=== PATIENT | male | born 1960 | race Caucasian/White ===

== ENCOUNTER 2022-12-04 08:54 | Observation (INO) ==
--- NOTE | 2022-10-24 21:54 | PAT Medication Instructions ---
Medication Instructions Date of Service October 24, 2022 Home Medications acetaminophen 500 mg tablet 1,000 mg PO Q6H PRN Pain allopurinol 300 mg tablet 300 mg PO HS ascorbic acid (vitamin C) 500 mg tablet (Vitamin C) 500 mg PO QAM cholecalciferol (vitamin D3) 50 mcg (2,000 unit) capsule (Vitamin D3) 50 mcg PO QAM diclofenac sodium 1 % topical gel 2 g topical QID PRN Pain diclofenac sodium 75 mg tablet,delayed release 75 mg PO BID losartan 50 mg tablet 50 mg PO QAM multivitamin 1 tab PO QAM terazosin 10 mg capsule 10 mg PO HS zinc 50 mg tablet 50 mg PO QAM ASK your surgeon for instructions diclofenac sodium 75 mg tablet,delayed release 75 mg PO BID diclofenac sodium 1 % topical gel 2 g topical QID PRN Pain DO NOT take the morning of surgery ascorbic acid (vitamin C) 500 mg tablet (Vitamin C) 500 mg PO QAM cholecalciferol (vitamin D3) 50 mcg (2,000 unit) capsule (Vitamin D3) 50 mcg PO QAM losartan 50 mg tablet 50 mg PO QAM multivitamin 1 tab PO QAM zinc 50 mg tablet 50 mg PO QAM Take morning of surgery With a small sip of water, OTHERWISE NOTHING TO EAT OR DRINK AFTER MIDNIGHT: acetaminophen 500 mg tablet 1,000 mg PO Q6H PRN Pain (if needed) Take evening before surgery acetaminophen 500 mg tablet 1,000 mg PO Q6H PRN Pain (if needed) allopurinol 300 mg tablet 300 mg PO HS terazosin 10 mg capsule 10 mg PO HS Other Notes If you have any questions please call us at [phone] or [phone] or [phone] or [phone]
--- NOTE | 2022-10-30 08:49 | Anesthesiology Consultation ---
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 Pt is vaccinated for Covid. Will leave to surgeon's discretion if preop Covid testing needed. Educated on importance of using Covid precautions one week prior to surgery Teaching & Discussion Pre-Anesthesia Teaching/Discussion Notes: Instructed NPO after midnight before surgery,except medications with 15 cc of water. Medication instructions provided according to the PAT guidelines. History Surgery Operation Date: 12/04/22 10:30 Proposed Procedures p Left Total Knee Arthroplasty - Alireza Abbott DO Height/Weight Height: 6 ft 1 in Weight: 122.3 kg Allergies Allergy/AdvReac Type Severity Reaction Status Date / Time Penicillins Allergy "welts Verified 10/24/22 08:58 over entire body" codeine AdvReac Intermediate Agitated Verified 10/30/22 08:55 Medications Home Medications Medication Instructions Recorded Confirmed Last Taken acetaminophen 500 mg tablet 1,000 mg PO Q6H PRN Pain 10/24/22 10/24/22 Unknown allopurinol 300 mg tablet 300 mg PO HS 10/24/22 10/24/22 Unknown ascorbic acid (vitamin C) 500 mg 500 mg PO QAM 10/24/22 10/24/22 Unknown tablet (Vitamin C) cholecalciferol (vitamin D3) 50 50 mcg PO QAM 10/24/22 10/24/22 Unknown mcg (2,000 unit) capsule (Vitamin D3) diclofenac sodium 1 % topical gel 2 g topical QID PRN Pain 10/24/22 10/24/22 Unknown diclofenac sodium 75 mg 75 mg PO BID 10/24/22 10/24/22 Unknown tablet,delayed release losartan 50 mg tablet 50 mg PO QAM 10/24/22 10/24/22 Unknown multivitamin 1 tab PO QAM 10/24/22 10/24/22 Unknown terazosin 10 mg capsule 10 mg PO HS 10/24/22 10/24/22 Unknown zinc 50 mg tablet 50 mg PO QAM 10/24/22 10/24/22 Unknown Past Medical History Medical History (Updated 10/30/22 @ 08:54 by Geri Wilburn PA-C) Gout No recent issues History of anesthesia problem Post op hypotension with hernia surgery- had to stay an extra few hours but later discharged home Hx of coronary angiogram 2001 following [place]; done in [facility] - no stents or bypass needed 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 kidney; has also had exploratory surgery to check to see if the tumors came back- no issues History of tonsillectomy and adenoidectomy Hx of colonoscopy Hx of total shoulder replacement lt. Hx of umbilical hernia repair Past Anesthesia History No Hx of Anesthesia Complications (with exception to hernia surgery (2014) - hypotension post op - did have subsequent shoulder surgery without issues ) and No Family Hx of Anesthesia Complications History of PONV No Hx of PONV and No Hx of Motion Sickness Social History Smoking Status: Former smoker tobacco type: cigarettes Do You Dip or Chew Tobacco: Yes (08/03/21-quit) Smoking End Date: 2001 Hx Alcohol Use: Yes alcohol intake frequency: holidays/special occasions only Alcohol Intake Frequency Comment: doesn't drink much when he does drink Hx Substance Use: No substance use type: does not use Review of Systems Hx of snoring - shallow breathing but no witnessed apnea- no hx of sleep study Patient denies chest pain, shortness of breath, dyspnea on exertion, reflux, cough, wheezing, palpitations. No hx of seizures, stroke. No hx of blood clots or blood transfusions Physical Exam Vital Signs VITALS BP 155/98 (did not take BP meds this morning- usually better controlled- will take BP meds when he gets home and recheck BP and call if still elevated) P 79 TEMP 98.0 SP02 95% RESP 16 Constitutional no acute distress ENMT Mouth: + small oral opening; no TMJ clicking Thyromental Distance: > or= 3.5 Finger Breadths (4.0) Mallampati Class: III Missing molars Neck neck extension not limited Respiratory normal respiratory effort; no respiratory distress Auscultation: lungs clear to auscultation bilaterally; no wheezes Cardiovascular Rate/Rhythm: regular rate and regular rhythm Heart Sounds: no murmur Vessels: no carotid bruit Musculoskeletal Spine: no pain with cervical ROM Extremities: extremities normal to inspection Psychiatric Orientation: alert Lab Results Anesthesia Preop Results Results Anesthesia Widget: 2 WBC 7.06 K/ul (4.8-10.8) 10/30/22 Hgb 13.9 g/dl (14.0-18.0) L 10/30/22 Hct 42.2 % (40.1-51.0) 10/30/22 Plt 196 K/uL (130-400) 10/30/22 Na 139 mmol/L (136-145) 10/30/22 K 4.0 mmol/L (3.5-5.1) 10/30/22 Cl 106 mmol/L (98-107) 10/30/22 CO2 26 mmol/L (21-32) 10/30/22 BUN 11 mg/dl (6-23) 10/30/22 Creat 0.79 mg/dl (0.6-1.4) 10/30/22 Glucose Level 87 mg/dl (70-99(Fasting)) 10/30/22 PT 10.3 Seconds (9.0-12.0) 10/30/22 PTT 30.1 Seconds (21.0-31.0) 10/30/22 INR 1.0 (0.9-1.1) 10/30/22 HA1c 5.7 % (4.5-5.6) H 10/30/22 Urine Color Yellow 10/30/22 Urine Appearance Clear (Clear) 10/30/22 Urine pH 6.0 (4.5-7.5) 10/30/22 Urine Specific [place] 1.019 (1.000-1.030) 10/30/22 Urine Protein Negative (Negative) 10/30/22 Urine Glucose (UA) Negative (Negative) 10/30/22 Urine Ketones Negative (Negative) 10/30/22 Urine Blood Negative (Negative) 10/30/22 Urine Nitrite Negative (Negative) 10/30/22 Urine Bilirubin Negative (Negative) 10/30/22 Urine Urobilinogen Negative (Negative) 10/30/22 Urine Leukocyte Esterase Negative (Negative) 10/30/22 Blood Type O Positive 10/30/22 Antibody Screen NEGATIVE 10/30/22 Testing Electrocardiogram Date: 10/30/22 Sinus rhythm with sinus arrhythmia with 1st degree AVB at 70bpm. Otherwise normal EKG per cardio. Chest X-Ray Date: 10/30/22 Findings: + NAD FINDINGS: PA and lateral chest radiographs are obtained. The heart is mildly enlarged. The pulmonary vasculature is noncongested. The lungs and pleural spaces are clear noting mild bibasilar atelectasis. There is no pneumothorax. The skeletal structures are osteopenic. The bony thorax appears intact. Degenerative change and mild scoliosis is noted in the spine. A left shoulder arthroplasty is in place. COVID-19 Risk Screen Screening Information COVID-19 Screen Date: 10/30/22 Exposure 21 Days Family/Household +COVID Last 21 Days: No Exposure 10 Days Any COVID Exposure Last 10 Days: No Symptoms Last 10 Days Experienced COVID Sx Last 10 Days: No + COVID 0-90 Days COVID + in Last 0-90 Days: No Risk Plan COVID Risk Plan: No Risk Identified Patient Education COVID Preop Screening Education Complete: Yes
--- NOTE | 2022-11-05 08:52 | History & Physical Report ---
Date of Service November 05, 2022 date of surgery: 12/04/22 Procedure: Left Total Knee Arthroplasty Surgeon: Alireza Abbott Assessment & Plan (1) Arthritis of knee, left: Plan: Further care discussed with patient and at this point in time has failed conservative measures and would like to proceed with a left total knee replacement. Plan on discharge will be home with home health physical therapy. DVT prophylaxiswith TEDs, SCDs and will also place on aspirin 81 mg p.o. b.i.d. for a month postop. Patient will have follow up appointment in our office two weeks post op for staple/suture removal and re-evaluation. Patient otherwise has no other questions or concerns. The risks and benefits have been discussed including, but not limited to, risk of infection, nerve injury, stiffness, loss of motion, failure to improve, etc. Reasonable outcomes and options of treatment were discussed. An explanation of appropriate alternatives to the procedure that may be advantageous were discussed and their risks and benefits, as well as the risks and benefits of not proceeding with treatment. I offered to answer any additional inquiries concerning the treatment involved. All the patient's questions were answered. The patient is agreeable, understanding of the treatment plan and alternatives, and wishes to proceed with the treatment plan. History of Present Illness Chief Complaint: left knee pain Primary Care Provider: Alireza Abbott DO Piter is a pleasant 62-year-old male who presents for preop evaluation prior to his left total knee replacement, he has been having pain in his knee for many years now which is gradually worsened and is now affecting his daily activities including walking standing going up and down stairs. He is tried and failed prior cortisone injection, viscosupplementation, extractor loader and unloader brace, Iovera treatment without any relief. he has also tried IBU and Voltaren. He rates his current pain as a 7 out of 10. At this point time is failed conservative measures and would like to proceed with a left total knee replacement. Allergies Allergy/AdvReac Type Severity Reaction Status Date / Time Penicillins Allergy "welts Verified 10/24/22 08:58 over entire body" codeine AdvReac Intermediate Agitated Verified 10/30/22 08:55 Home Medications Medication Instructions Recorded Confirmed Type acetaminophen 500 mg tablet 1,000 mg PO Q6H PRN Pain 10/24/22 10/24/22 History allopurinol 300 mg tablet 300 mg PO HS 10/24/22 10/24/22 History ascorbic acid (vitamin C) 500 mg 500 mg PO QAM 10/24/22 10/24/22 History tablet (Vitamin C) cholecalciferol (vitamin D3) 50 50 mcg PO QAM 10/24/22 10/24/22 History mcg (2,000 unit) capsule (Vitamin D3) diclofenac sodium 1 % topical gel 2 g topical QID PRN Pain 10/24/22 10/24/22 History diclofenac sodium 75 mg 75 mg PO BID 10/24/22 10/24/22 History tablet,delayed release losartan 50 mg tablet 50 mg PO QAM 10/24/22 10/24/22 History multivitamin 1 tab PO QAM 10/24/22 10/24/22 History terazosin 10 mg capsule 10 mg PO HS 10/24/22 10/24/22 History zinc 50 mg tablet 50 mg PO QAM 10/24/22 10/24/22 History Past Med/Surg History Medical History Gout No recent issues History of anesthesia problem Post op hypotension with hernia surgery- had to stay an extra few hours but later discharged home Hx of coronary angiogram 2001 following [place]; done in [facility] - no stents or bypass needed 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 kidney; has also had exploratory surgery to check to see if the tumors came back- no issues History of tonsillectomy and adenoidectomy Hx of colonoscopy Hx of total shoulder replacement lt. Hx of umbilical hernia repair Social History Smoking Status: Former smoker Second Hand Exposure: No; Hx Alcohol Use: Yes Hx Substance Use: No Preferred Language: French Communication Ability: Effective Psych Arnp Required: No Beliefs That Will Affect Care: None Current Living Situation: Spouse and Family Feels Safe at Home: Yes Assistive Devices: Glasses Review of Systems Review of Systems: All systems reviewed & are unremarkable except as noted in HPI & below Constitutional: no fever, no chills and no sweats Respiratory: no cough and no dyspnea Cardiovascular: no chest pain, no dyspnea and no orthopnea Gastrointestinal: no abdominal pain, no nausea and no vomiting Musculoskeletal: as per Subjective / HPI Physical Exam Physical Exam: HT: 6ft 1in WT: 122.3kg Constitutional: WD/WN, vitals as above no acute distress Respiratory: normal respiratory effort, lungs clear to auscultation no respiratory distress, no labored breathing and does not use accessory muscles Cardiovascular: RRR, no murmur, no edema Gastrointestinal (Abdomen): normal bowel sounds, soft, nontender, no hepatosplenomegaly Musculoskeletal: Knee: + knee abnormal to inspection (LEFT KNEE), + effusion (+1 effusion), + limited ROM of knee (ROM 0/3/110), + knee ROM with crepitation, + joint line tenderness (medial joint line) and + Lisa's sign positive; no deformity, no skin erythema, no ecchymosis, no valgus laxity, no varus laxity, anterior drawer test negative, Gail's sign negative and pivot shift test negative Results & Data Results & Data ([facility]) Diagnostic Findings Left Knee X-ray: left knee series confirm advanced degenerative changes to the left knee, greatest medial compartments and patellofemoral joint, showing joint space narrowing, osteophyte formation and subchondral sclerosis. no acute bony pathology noted.
[~2022-12-04 08:54] MED LIST: ACETAMINOPHEN 500 MG TAB PO SCH; ALLERGY Noted to ORDERED Medication SCH; BUPIVACAINE 0.25% 30 ML VIAL ONE; BUPIVACAINE 0.5 % 5 MG/1 ML PF 10ML VIAL ONE; CeleBREX 200 MG CAP PO SCH; FAMOTIDINE 20 MG TAB PO SCH; GABAPENTIN 600 MG DOSE PO SCH; LR 500ML BOLUS, THEN 15ML/HR IV SCH; METOCLOPRAMIDE HCL 10 MG TABLET PO SCH; ROPIVACAINE 0.5% HCL/PF 150 MG, BUPIVACAINE 0.75% MPF 20 ML, EPINEPHrine 30MG/30ML (OR ... INSTIL SCH; TRANEXAMIC ACID 1,000 MG **IV Intra-op IV SCH; TRANEXAMIC ACID 1,000 MG **IV Pre-op IV SCH; dexAMETHasone 4 MG TAB PO SCH
[2022-12-04] MEDS ORDERED: PROPOFOL IV EMULSION 10 MG/ML 20 ML VIAL IV ONE ×3 (10:01→12:01)
[2022-12-04] MEDS ORDERED: MIDAZOLAM HCL 1 MG/ML 2ML VIAL ONE (10:01)
[2022-12-04] MEDS ORDERED: fentaNYL citrate 100 MCG/2 ML VIAL ONE (10:01)
[2022-12-04] MEDS ORDERED: LIDOCAINE 2% MPF LOCAL 5 ML VIAL INFIL ONE (10:01)
--- NOTE | 2022-12-04 10:09 | History & Physical Bridge Note ---
Date of Service December 04, 2022 History & Physical Bridge Note I have examined the patient, reviewed the History & Physical and in the interval since the performance of the History & Physical I have noted the following changes of clinical significance: no changes noted
[2022-12-04] MEDS ORDERED: Nursing to Pharmacy Communication SCH (10:15)
[2022-12-04] MEDS ORDERED: ceFAZolin 2000MG 2,000 MG/15 ML SYR IV ONE (10:15)
[2022-12-04] MEDS ORDERED: fentaNYL citrate 100 MCG/2 ML VIAL IV PRN (10:21)
[2022-12-04] MEDS ORDERED: ATROPINE SULFATE 0.1 MG/ML 10ML SYR IV PRN (10:21)
[2022-12-04] MEDS ORDERED: ePHEDrine sulfate 50 MG/ML AMP IV PRN (10:21)
[2022-12-04] MEDS ORDERED: ONDANSETRON INJ 2 MG/ML 2 ML VIAL IV PRN ×2 (10:21→14:14)
[2022-12-04] MEDS ORDERED: ORTHO JOINT ANESTHETIC ONE (10:54)
[2022-12-04] MEDS ORDERED: KETAMINE 50 MG/5 ML SYRINGE ONE (10:59)
[2022-12-04] MEDS ORDERED: DEXAMETHASONE SOD INJ 4 MG/ML VIAL ONE ×2 (11:41)
--- NOTE | 2022-12-04 12:50 | Operative Report ---
Post Operative Report Pre & Post Diagnosis Operation Date: 12/04/22 11:40 Pre-Op Diagnosis: Left Knee Osteoarthritis Post-Op Diagnosis: Left Knee Osteoarthritis I identified the patient and participated in the time-out.: Yes Procedure Operation Date: 12/04/22 11:40 Actual Procedures p Left Total Knee Arthroplasty(Left) utilizing Tom & NephHALFPOPS journey 2 patienttotal knee arthroplasty/femur 7 tibia 6 poly 10 patella 35 wes- Alireza Abbott DO Surgeon Alireza Abbott DO [employer] Dusty POLLARD Estimated Blood Loss 5 Findings Consistent with Post-Op Diagnosis Patient presents with a 20 degree flexion contracture eburnated [id number] large osteophytes inferior and superior patellar osteophytes anterior tibial posterior tibial posterior femoral osteophytes eburnated [id number] with a moderate to large effusion subchondral cystic changes and sclerosis Specimens Bone and cartilage Drains Medium bore Hemovac Anesthesia Type MAC Spinal Regional Complications none Disposition Accompanied Patient To Recovery: No Disposition: Recovery Room Indications Patient resents for severe end-stage DJD 20 degree flexion contracture failed attempts at conservative management including physical therapy anti- inflammatories relative rest activity modification corticosteroid injection viscosupplementation above intraoperative findings were noted Description of Procedure After proper prepping and draping of the left lower extremity anterior midline incision was made over the region of the extensor extensor mechanism after meticulous hemostasis was obtained and maintained in subcutaneous tissues a medial parapatellar incision was made The patella was subluxed lateralward the medial lateral gutter were cleaned from any hypertrophic synovitis and scar tissue of the distal femoral block was placed and the distal femoral osteotomy cut was made subsequently the chamfers anterior and posterior osteotomy cuts were made utilizing the 4-in-1 block the tibia was subsequently subluxed anteriorward medial and ateral meniscal remnants were excised in their entirety remnants of the anterior and posterior cruciate ligaments were excised in their entirety excellent exposure of the proximal tibia was obtained the tibial osteotomy guide was placed on the proximal tibial osteotomy cut was made once again the knee was irrigated with copious amounts of sterile saline solution the patella was subsequently everted lateralward thickened scar tissue around the patella was removed the patella was subsequently cut utilizing a freehand technique and was drilled prepared for final preparation and placement of patella socially flexion-extension gaps were checked and the equal and symmetric trials were placed to the appropriate femoral and tibial trials with poly-spacer being placed for equal flexion and extension gaps and full range of motion including extension to 0 and flexion to 140 the trial components after having been taken to recovery range of motion was subsequently removed meticulous hemostasis was obtained and maintained subsequently a knee block injection of joint cocktail including ropivacaine 0.5% 150 mg. Bupivacaine 0.5% epinephrine 1-200,030 mL's toradol 30 mg dexamethasone 4 mg ketamine 10 mg clonidine 100 micrograms normal saline solution 30 mg was infiltrated into the soft tissues of the posterior knee medial lateral gutters and periosteal synovium special attention was paid to protect neurovascular structures at all times subsequently trial components having been removed the knee was irrigated with sterile saline solution. debris was removed the proximal tibia was subsequently prepared and was made ready for the placement of the tibial component tibial component was also cemented and tamped into position the femoral component was subsequently placed and cemented in the position the patellar component was subsequently cemented in position because hemostasis once again obtained and maintained wound having been thoroughly irrigated with debridement and debridement lavage was performed as well as a medial parapatellar incision closed with #1 Vicryl in interrupted fashion subcutaneous was closed with #2 Vicryl skin was closed with skin clips. PA-C was necessary for prepping and drapping as well as wound closure of deep fascia Sub cutaneous tissue and skin and was necessary for the case. A sterile compressive dressing was placed patient was taken to recovery in stable condition of report dictated by Scar I attest to the content of the Intraoperative Record and any orders documented therein. Any exceptions are noted below.Due to the complex nature of the procedure, the entire surgery was performed with the operational assistance of Dusty POLLARD. The programs assistant, under direct supervision, was involved in the actual performance of all aspects of the surgical procedure including hemostasis, tissue retraction and incision, instrument management, patient positioning, and wound closure. I attest to the content of the Intraoperative Record and any orders documented therein. Any exceptions are noted below.
--- NOTE | 2022-12-04 13:47 | XRay Report ---
LEFT KNEE 2 VIEWS History: Left total knee arthroplasty. Degenerative arthritis. Postop. FINDINGS: The patient is status post a left total knee arthroplasty. The hardware is intact. No fract ure or dislocation. Surgical drains are in place. IMPRESSION: Left total knee arthroplasty. No evidence for hardware complication. ACT 112: Negative or not required by law. Electronically signed by: Ash Ferro M.D. 12/04/2022 1:45 PM
[2022-12-04] MEDS ORDERED: bisacodyL 10 MG SUPP PR PRN (14:14)
[2022-12-04] MEDS ORDERED: MAGNESIUM HYDROXIDE SUSP 30 ML UDC PO PRN (14:14)
[2022-12-04] MEDS ORDERED: oxyCODONE HCL IR 5 MG TAB (IMMEDIATE RELEASE) PO PRN (14:14)
[2022-12-04] MEDS ORDERED: diphenhydrAMINE Capsule 25 MG CAP PO PRN (14:14)
[2022-12-04] MEDS ORDERED: NALOXONE HCL 0.4 MG/1 ML VIAL/CARP IV PRN (14:14)
[2022-12-04] MEDS ORDERED: HYDROmorphone INJ 1 MG/ML SYRINGE IV PRN (14:14)
[2022-12-04] MEDS ORDERED: METOCLOPRAMIDE HCL INJ 5 MG/ML 2 ML VIAL IV PRN (14:14)
[2022-12-04] MEDS: ACETAMINOPHEN 500 MG TAB PO SCH ×2 (15:11→22:00)
[2022-12-04] MEDS: KETOROLAC TROMETHAMINE 15 MG/ML VIAL IV SCH ×2 (15:11→20:02)
[2022-12-04] MEDS: SODIUM CHLORIDE 0.9% 1000ML 1,000 ML IV SCH (15:30)
--- NOTE | 2022-12-04 16:58 | Anesthesiology Progress Note ---
Date of Service December 04, 2022 Anesthesia Post Procedure Vital Signs Vital Signs: Temp Pulse Pulse Resp BP Pulse Ox O2 Del Method 12/04/22 15:45 36.7 C 103 H 16 144/93 H 95 Nasal Cannula 12/04/22 15:24 101 H 18 144/92 H 95 Room Air 12/04/22 14:45 Nasal Cannula 12/04/22 14:45 36.4 C L 92 H 18 127/86 Nasal Cannula 12/04/22 14:30 36.4 C L 92 H 18 130/92 94 Nasal Cannula 12/04/22 14:15 99 H 18 119/90 94 Nasal Cannula 12/04/22 14:00 90 18 114/80 93 Nasal Cannula 12/04/22 13:55 95 H 18 125/82 94 Nasal Cannula 12/04/22 13:45 88 16 109/72 94 Nasal Cannula 12/04/22 13:35 93 H 15 98/67 L 92 Nasal Cannula 12/04/22 13:26 36.2 C L 102 H 22 92/64 L 93 Nasal Cannula 12/04/22 09:24 36.5 C 95 H 20 140/89 96 Room Air O2 Flow Rate 12/04/22 15:45 2 12/04/22 15:24 2 12/04/22 14:45 2 12/04/22 14:45 2 12/04/22 14:30 2 12/04/22 14:15 2 12/04/22 14:00 2 12/04/22 13:55 2 12/04/22 13:45 2 12/04/22 13:35 2 12/04/22 13:26 2 12/04/22 09:24 Pain Intensity Left Knee: Pain Intensity: 4 Transfer of Care Handoff Completed per policy Notes Mental Status: alert / awake / arousable and participated in evaluation Patient Amnestic to Procedure: Yes Nausea / Vomiting: adequately controlled Pain: adequately controlled Airway Patency, RR, SpO2: stable & adequate BP & HR: stable & adequate Hydration State: stable & adequate Neuraxial Anesthesia: was administered and sensory block is resolving Anesthetic Complications: no major complications apparent and Pt Satisfied with anesthetic care
[2022-12-04] MEDS: DOCUSATE SODIUM 100 MG CAP PO SCH (20:03)
[2022-12-04] MEDS: ASPIRIN 81 MG ECTAB PO SCH (20:04)
[2022-12-04] MEDS: ceFAZolin 2000MG 2,000 MG/15 ML SYR IV SCH (20:18)
[2022-12-04] MEDS ORDERED: allopurinoL 300 MG TAB PO SCH (21:00)
[2022-12-04] MEDS ORDERED: SENNA 8.6 MG TAB PO SCH (21:00)
[2022-12-04] MEDS ORDERED: TERAZOSIN HCL 5 MG CAP PO SCH (21:00)
[2022-12-05] MEDS: ceFAZolin 2000MG 2,000 MG/15 ML SYR IV SCH (02:58)
[2022-12-05] MEDS: KETOROLAC TROMETHAMINE 15 MG/ML VIAL IV SCH ×2 (02:59→08:33)
[2022-12-05] MEDS: SODIUM CHLORIDE 0.9% 1000ML 1,000 ML IV SCH (03:01)
[2022-12-05] MEDS: ACETAMINOPHEN 500 MG TAB PO SCH (05:16)
[2022-12-05 08:02] LABS: Hematocrit (blood only) 34.9 % (42.0-52.0); Hemoglobin 11.9 g/dl (14.0-18.0); Mean Corpuscular Hemoglobin 30.7 pg (25.0-34.0); Mean Corpuscular Hgb Conc 34.1 g/dL (32.0-36.0); Mean Corpuscular Volume 90.2 fL (80.0-100.0); Mean Platelet Volume 10.8 fL (9.4-12.4); Platelet Count 191 K/uL (130-400); RDW Coefficient of Variation 14.2 % (11.5-14.5); RDW Standard Deviation 46.5 fL (36.4-46.3); Red Blood Count 3.87 M/uL (4.70-6.10); White Blood Count 18.81 K/ul (4.8-10.8)
[2022-12-05] MEDS: ASPIRIN 81 MG ECTAB PO SCH (08:30)
[2022-12-05] MEDS: DOCUSATE SODIUM 100 MG CAP PO SCH (08:30)
[2022-12-05] MEDS ORDERED: MULTIVITAMIN TAB PO SCH (09:00)
[2022-12-05] MEDS ORDERED: ASCORBIC ACID 500 MG TAB PO SCH (09:00)
[2022-12-05] MEDS ORDERED: CHOLECALCIFEROL 1,000 UNITS 25 MCG TAB PO SCH (09:00)
[2022-12-05] MEDS ORDERED: FAMOTIDINE 10 MG TABLET PO SCH (09:00)
[2022-12-05] MEDS ORDERED: LOSARTAN POTASSIUM 50 MG TAB PO SCH (09:00)
[2022-12-05] MEDS ORDERED: CeleBREX 200 MG CAP PO SCH (09:00)
--- NOTE | 2022-12-05 09:46 | Orthopedic Progress Note ---
Date of Service December 05, 2022 Assessment & Plan (1) Arthritis of knee, left: Plan: Postop day 1 status post left total knee arthroplasty PT/OT protocols. Weightbearing as tolerated. DVT prophylaxis-aspirin p.o. twice daily, ARTHUR Taylor Pain management as written. Leukocytosis-likely secondary to preoperative steroids and/or surgical stress. Patient remaining asymptomatic. DC planning-patient is planning for home health services upon discharge. Plan for discharge to home today. Admission and Anticipated Discharge Date Admission Date: December 04, 2022 Subjective Postop day 1 Patient's sitting up in bed awake and alert. No complaints this morning. Pain is controlled. He states that he was ambulating last night around the hallways. He is hoping to go home today. Physical Exam Physical Exam: Dressings are clean, dry, and intact. Calves are soft nontender. Neurovascular intact. Toes are mobile. Patient has good dorsiflexion and plantarflexion of the left foot. Results & Data ([facility]) Vital Signs (Past 12 Hours) Vital Signs Temp Pulse Resp BP Pulse Ox O2 Del Method 12/05/22 08:03 36.6 C 88 144/78 H 94 Room Air 12/05/22 07:34 37.0 C 95 H 18 151/81 H 95 Room Air 12/05/22 03:45 36.9 C 89 18 160/80 H 96 Room Air
[2022-12-05 11:38] LABS: BUN Creatinine Ratio 25.3 (10-20); Calcium 8.5 mg/dl (8.5-10.1); Creatinine Clr Calc Pharmacy 113.9 ml/min; Est GFR (African American) 104.3 ml/min
--- NOTE | 2022-12-09 10:39 | Discharge Summary ---
Date of Service December 09, 2022 Admission HPI Per Admitting Provider Piter is a pleasant 62-year-old male who presents for preop evaluation prior to his left total knee replacement, he has been having pain in his knee for many years now which is gradually worsened and is now affecting his daily activities including walking standing going up and down stairs. He is tried and failed prior cortisone injection, viscosupplementation, reservations and ticketing agent brace, Iovera treatment without any relief. he has also tried IBU and Voltaren. He rates his current pain as a 7 out of 10. At this point time is failed conservative measures and would like to proceed with a left total knee replacement. Admission Exam Per Admitting Provider Physical Exam: HT: 6ft 1in WT: 122.3kg Constitutional: WD/WN, vitals as above no acute distress Respiratory: normal respiratory effort, lungs clear to auscultation no respiratory distress, no labored breathing and does not use accessory muscles Cardiovascular: RRR, no murmur, no edema Gastrointestinal (Abdomen): normal bowel sounds, soft, nontender, no hepatosplenomegaly Musculoskeletal: Knee: + knee abnormal to inspection (LEFT KNEE), + effusion (+1 effusion), + limited ROM of knee (ROM 0/3/110), + knee ROM with crepitation, + joint line tenderness (medial joint line) and + Lisa's sign positive; no deformity, no skin erythema, no ecchymosis, no valgus laxity, no varus laxity, anterior drawer test negative, Gail's sign negative and pivot shift test negative Principal Diagnosis Left Knee Osteoarthritis Discharge Data Allergies Allergy/AdvReac Type Severity Reaction Status Date / Time Penicillins Allergy "welts Verified 12/04/22 09:25 over entire body" codeine AdvReac Intermediate Agitated Verified 12/04/22 09:25 Procedures Performed Operation Date: 12/04/22 11:40 Actual Procedures p Left Total Knee Arthroplasty(Left) - Alireza Abbott DO Ordered Studies 12/04/22 05:00 US - OR guided needle placemen Routine Hospital Course (1) Arthritis of knee, left: Patient:PITER SANCHEZ Admit Date:12/04/22 MR#:[id number] Att Phy:Alireza Abbott,D.O. Acct ID:[id number] Cecilia Phy:Alireza Antoine D.O. Date:1960 [facility] Phy: Age:62 Location:3W Sex:M Room/Bed:[facility] cc: ~ *NOTICE TO RECEIVING REPUBLICAN/AGENCY This information is strictly Confidential and protected under [place] law. [place] law prohibits you from making any further disclosure of this information unless further disclosure is expressly permitted by the written consent of the person to whom it pertains or is authorized by law. A general authorization for the release of medical or other information is not sufficient for this purpose. Hospital accepts no responsibility if the information is made available to any other person, INCLUDING THE PATIENT. Date of Service December 05, 2022 Assessment & Plan (1) Arthritis of knee, left: Plan: Postop day 1 status post left total knee arthroplasty PT/OT protocols. Weightbearing as tolerated. DVT prophylaxis-aspirin p.o. twice daily, SCDs, ARTHUR hose Pain management as written. Leukocytosis-likely secondary to preoperative steroids and/or surgical stress. Patient remaining asymptomatic. DC planning-patient is planning for home health services upon discharge. Plan for discharge to home today. Admission and Anticipated Discharge Date Admission Date: December 04, 2022 Subjective Postop day 1 Patient's sitting up in bed awake and alert. No complaints this morning. Pain is controlled. He states that he was ambulating last night around the hallways. He is hoping to go home today. Physical Exam Physical Exam: Dressings are clean, dry, and intact. Calves are soft no ntender. Neurovascular intact. Toes are mobile. Patient has good dorsiflexion and plantarflexion of the left foot. Results & Data ([facility]) Vital Signs (Past 12 Hours) Vital Signs Temp Pulse Resp BP Pulse Ox O2 Del Method 12/05/22 08:03 36.6 C 88 144/78 H 94 Room Air 12/05/22 07:34 37.0 C 95 H 18 151/81 H 95 Room Air 12/05/22 03:45 36.9 C 89 18 160/80 H 96 Room Air Signed By: <Electronically signed by Dusty Claudio PA-C> 12/05/22 0950 <Electronically signed by Ramon Chino M.D.> 12/05/22 1704 Created:12/05/22 0945 The status of this report isSigned. Total Time Total Time Spent Total Time Spent (In Minutes): 5 Discharge Plan Discharge Items Patient Disposition: Home - Home Health Services Reason For Visit: POST OP TKA Discharge Diagnosis: Left knee osteoarthritis Activity: Per Instructions section Weightbearing: Left weightbearing Weightbearing Comment: As tolerated with walker Non-emergency contact: Surgeon Call non-emergency contact if: you have any medication questions, your pain is not controlled, your temperature is above 101.5, your wound has increased redness and your wound has increased drainage Follow-up/Referrals: Alireza Abbott DO [Surgeon] - (Follow-up with Dr. Abbott or his PA in 2 weeks from the day of your surgery for your first postoperative visit.) Alireza Antoine, D.OChun [Primary Care Provider] - Diet: Regular Addtl Attending Provider Instructions: ACTIVITY RECOMMENDATIONS: SELF CARE INSTRUCTIONS AFTER TOTAL KNEE REPLACEMENT A. You may need to continue a physical therapy program after discharge from the hospital. There are several options available to you. Your doctor will assist you in selecting the best one for you. 1. An out-patient facility 2 to 3 times a week for therapy or home therapy. 2. Continue working on all exercises taught to you in the hospital. Your goals should be to increase bending of your knee to 90 degrees and beyond and to fully straighten your knee. B. You may progress at your own pace from walking with a walker or crutches to a cane; then to no assistive devices. C. Make walking a part of your daily routine. Be up as much as comfortable with rest periods throughout the day. Rest with leg elevation is very important. Use the ice wrap frequently for the first 3-4 weeks. D. There are no restrictions on activities. You may ride in a car, shop, participate in electronic systems technician and all social activities. E. Wear the long elastic stockings (ARTHUR hose) 20 hours a day for 2 weeks after surgery. They can be removed several times a day for laundering and for a bath. F. You may shower, no tub baths until cleared by your doctor. SPECIAL CARE INSTRUCTIONS: VERY IMPORTANT TO READ AND REVIEW A. There are a few signs you need to watch for after you are home. Call [facility] if you notice any of the followin. Increased severe knee pain. Some pain is expected especially when you exercise. 2. Increased swelling in your leg or knee; pain or swelling of the calf muscle in either lower leg. 3. Any fluid drainage from the incision. 4. Shortness of breath or chest pain. B. Please call [facility] at if you have any concerns or questions about your operation or recovery. The doctor or his nurse will return your call promptly. C. You must take antibiotics before dental work, bladder, bowel or other surgery. Your doctor will provide you with a permanent care to carry describing this precaution. IMPORTANT: * REMEMBER TO TAKE ASPIRIN, 81 MG, TWICE DAILY FOR 4 WEEKS UNLESS OTHERWISE DIRECTED. THIS IS YOUR BLOOD THINNER. * HIGH RISK PATIENTS MAY BE PRESCRIBED A STRONGER BLOOD THINNER. THIS WILL BE PROVIDED AT DISCHARGE. * CALL IF INCREASED PAIN, REDNESS, DRAINAGE OR FEVER GREATER THAT 101. * WEAR ARTHUR HOSE 20 HOURS PER DAY FOR 2 WEEKS. * Prevena- This is a large suction dressing covering your incision. This will help pull any excess drainage from the wound and allow your incision to heal properly. You may shower with this if you can keep the unit outside of the shower. If any bleeding or leakage is noted please call your doctor's office. This will remain on your incision for 7 days and then should be removed. This can be done yourself or by the home nursing staff if applicable. The entire unit is disposable once removed. Once removed, keep incision clean and dry. If redness or drainage is noted, please call your surgeon. . *Once your ken dressing has been removed ---> DERMABOND Prineo- This is a mesh tape dressing that is covered with glue. It should remain in place until the incision is properly healed, usually 10-14 days. This dressing is designed to naturally slough off. You may trim the excess mesh tape as it peels off. Incision may be briefly wet in a shower. Dry immediately by blotting with a clean, dry towel. Do not bath or swim until instructed by your doctor. Do not scratch, rub, or pick at the dressing. Do not apply any topical ointments or lotions until dressing is completely removed and/or instructed by your doctor. There may be a small piece of suture material at one end of your incision. Do not pull or trim this. If it is bothersome or catching on clothing, you may c over it with a band-aid. FOLLOW UP VISIT: If appointment is not already scheduled: Please call [facility] to make a follow-up appointment for 2 weeks after your surgery at . Stand-Alone Forms: My [facility], Smoking Cessation Medications and DC Order Prescriptions: New celecoxib [Celebrex] 200 mg Capsule 200 mg PO BID 14 Days Qty: 28 0RF aspirin 81 mg Tablet,Delayed Release (Dr/Ec) 81 mg PO BID 30 Days Qty: 60 0RF acetaminophen [Tylenol Extra Strength] 500 mg Tablet 1,000 mg PO Q8 14 Days Qty: 84 0RF polyethylene glycol 3350 [Miralax] 17 gram powder in packet 17 g PO DAILY PRN (Reason: constipation) Qty: 5 0RF oxycodone 5 mg tablet 5 mg PO Q4H MDD 6 PRN (Reason: pain) Qty: 30 0RF Continued multivitamin Tablet 1 tab PO QAM losartan 50 mg Tablet 50 mg PO QAM ascorbic acid (vitamin C) [Vitamin C] 500 mg Tablet 500 mg PO QAM allopurinol 300 mg Tablet 300 mg PO HS zinc 50 mg Tablet 50 mg PO QAM terazosin 10 mg Capsule 10 mg PO HS diclofenac sodium 1 % Gel 2 g TOPICAL QID PRN (Reason: Pain) Rx Instructions: apply to single elbow, wrist or hand; for hand includes palm/fingers/back of hand cholecalciferol (vitamin D3) [Vitamin D3] 50 mcg (2,000 unit) Capsule 50 mcg PO QAM famotidine 10 mg Tablet 10 mg PO DAILY Discontinued acetaminophen 500 mg Tablet 1,000 mg PO Q6H PRN (Reason: Pain) Label Comments: every once in awhile. diclofenac sodium 75 mg Tablet,Delayed Release (Dr/Ec) 75 mg PO BID Admission Data Admit Date/Time: 12/04/22 12:49 Attending Provider: Alireza Abbott Admit Provider: Alireza Abbott Primary Care Provider: Alireza Antoine Other Interventions: Discharge Summary Assessment (RN) Last Done: 12/05/22 11:18
== END 2022-12-05 12:46 | disposition home health service (06) ==
LOC: ASU 08:54 → 3W 08:54
DX: Z88.0 Allergy status to penicillin; M17.12 Unilateral primary osteoarthritis, left knee; Z88.5 Allergy status to narcotic agent; M65.9 Synovitis and tenosynovitis, unspecified; Z87.891 Personal history of nicotine dependence; Z79.899 Other long term (current) drug therapy

== ENCOUNTER 2023-01-21 06:47 | Observation (INO) ==
--- NOTE | 2023-01-01 12:04 | History & Physical Report ---
Date of Service January 01, 2023 date of surgery: 01/21/23 Procedure: Right Total Knee Arthroplasty Surgeon: Alireza Abbott Assessment & Plan (1) Arthritis of right knee: Plan: Further care discussed with patient and at this point in time has failed conservative measures and would like to proceed with a right total knee replacement. Plan on discharge will be home with home health physical therapy. DVT prophylaxiswith TEDs, SCDs and will also place on aspirin 81 mg p.o. b.i.d. for a month postop. Patient will have follow up appointment in our office two weeks post op for staple/suture removal and re-evaluation. Patient otherwise has no other questions or concerns. The risks and benefits have been discussed including, but not limited to, risk of infection, nerve injury, stiffness, loss of motion, failure to improve, etc. Reasonable outcomes and options of treatment were discussed. An explanation of appropriate alternatives to the procedure that may be advantageous were discussed and their risks and benefits, as well as the risks and benefits of not proceeding with treatment. I offered to answer any additional inquiries concerning the treatment involved. All the patient's questions were answered. The patient is agreeable, understanding of the treatment plan and alternatives, and wishes to proceed with the treatment plan. History of Present Illness Chief Complaint: Right knee pain Primary Care Provider: Alireza Abbott DO Piter is a pleasant 62-year-old male who presents for preop evaluation prior to his right total knee replacement, he has been having pain in his knee for many years now which is gradually worsened and is now affecting his daily activities including walking standing going up and down stairs. he has recently undergone left TKA and is doing quite well. He has tried prior cortisone injection, viscosupplementation, folder and notcher brace, Iovera treatment without any significant improvement. he has also tried IBU and Voltaren. He rates his current pain as a 7 out of 10. At this point time is failed conservative measures and would like to proceed with a right total knee replacement. Allergies Allergy/AdvReac Type Severity Reaction Status Date / Time Penicillins Allergy "welts Verified 12/04/22 09:25 over entire body" codeine AdvReac Intermediate Agitated Verified 12/04/22 09:25 Home Medications Medication Instructions Recorded Confirmed Type allopurinol 300 mg tablet 300 mg PO HS 10/24/22 12/04/22 History ascorbic acid (vitamin C) 500 mg 500 mg PO QAM 10/24/22 12/04/22 History tablet (Vitamin C) cholecalciferol (vitamin D3) 50 50 mcg PO QAM 10/24/22 12/04/22 History mcg (2,000 unit) capsule (Vitamin D3) diclofenac sodium 1 % topical gel 2 g topical QID PRN Pain 10/24/22 12/04/22 History losartan 50 mg tablet 50 mg PO QAM 10/24/22 12/04/22 History multivitamin 1 tab PO QAM 10/24/22 12/04/22 History terazosin 10 mg capsule 10 mg PO HS 10/24/22 12/04/22 History zinc 50 mg tablet 50 mg PO QAM 10/24/22 12/04/22 History aspirin 81 mg tablet,delayed 81 mg PO BID 30 days #60 tabs 12/04/22 Rx release famotidine 10 mg tablet 10 mg PO DAILY 12/04/22 12/04/22 History polyethylene glycol 3350 17 gram 17 g PO DAILY PRN constipation #5 12/04/22 Rx oral powder packet (Miralax) ea oxycodone 5 mg tablet 5 mg PO Q4H PRN pain #30 tabs 12/05/22 Rx Past Med/Surg History Medical History Gout No recent issues History of anesthesia problem Post op hypotension with hernia surgery- had to stay an extra few hours but later discharged home Hx of coronary angiogram 2001 following [place]; done in [facility] - no stents or bypass needed Hx of malignant neoplasm of kidney 2011- 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 kidney; has also had exploratory surgery to check to see if the tumors came back- no issues History of tonsillectomy and adenoidectomy Hx of colonoscopy Hx of total shoulder replacement lt. Hx of umbilical hernia repair Social History Smoking Status: Former smoker Smoking End Date: 2001; Second Hand Exposure: No; Do You Dip or Chew Tobacco: Yes (08/03/21-quit); Tobacco Cessation Education Requested by Patient: No Hx Alcohol Use: Yes Hx Substance Use: No Preferred Language: Swedish Communication Ability: Effective Chemical Process Analyst Required: No Beliefs That Will Affect Care: None Current Living Situation: Spouse and Family Other Information That Helps Us Care for You: No Feels Safe at Home: Yes Safety Concerns: Feels Safe At This Time Assistive Devices: Cane, Contacts, Raised Toilet Seat and Walker Review of Systems Review of Systems: All systems reviewed & are unremarkable except as noted in HPI & below Constitutional: no fever, no chills and no sweats Respiratory: no cough and no dyspnea Cardiovascular: no chest pain, no dyspnea and no orthopnea Gastrointestinal: no abdominal pain, no nausea and no vomiting Musculoskeletal: as per Subjective / HPI Physical Exam Physical Exam: HT: 6ft 1in WT: 122.3kg Constitutional: WD/WN, vitals as above no acute distress Respiratory: normal respiratory effort, lungs clear to auscultation no respiratory distress, no labored breathing and does not use accessory muscles Cardiovascular: RRR, no murmur, no edema Gastrointestinal (Abdomen): normal bowel sounds, soft, nontender, no hepatosp lenomegaly Musculoskeletal: Knee: + knee abnormal to inspection (RIGHT KNEE: ), + effusion (+1 effusion), + limited ROM of knee (ROM 0/3/110), + knee ROM with crepitation, + joint line tenderness (medial joint line) and + Lisa's sign positive; no deformity, no skin erythema, no ecchymosis, no valgus laxity, no varus laxity, anterior drawer test negative, Gail's sign negative and pivot shift test negative Results & Data Results & Data ([facility]) Diagnostic Findings Right Knee X-ray: Right knee series showing advanced degenerative changes to the right knee, narrowing of the medial compartment and patello-femoral joint with patellar spurring noted, findings showing joint space narrowing of the medial compartment and patello-femoral joint, osteophyte formation and subchondral sclerosis noted. overall varus alignment. no acute bony pathology noted.
--- NOTE | 2023-01-15 11:50 | Anesthesiology Consultation ---
Date of Service January 15, 2023 Assessment & Plan (1) Encounter for pre-operative examination: Chart Review Chart Review: Acceptable Risk for Surgery (pending DOS labs) and Patient NOT seen in Pre Admission Testing - Recheck CBC with diff and coags stat DOS - Due to PMH- would not recommend Outpatient Joint for patient -COVID screening: Per PAT nursing assessment on 01/15/23. No known COVID-19 positive contacts or current COVID-19 related symptoms. Travel screen negative. Patient vaccinated for Covid. At surgeon discretion if preop Covid testing being done. Left TKA 12/04/22= Done under SAB at L3-4 with two attempts. Patient seen by PCP 11/14/2022 (prior to 12/04/22 left TKA)= seen for preoperative visit. Scheduled for left total knee replacement and then later for right total knee replacement. No concerns during exam today. PE within normal limits. Patient is stable for surgery at this time with minimal risks. Labs, CXR and EKG were all reviewed. Hypertensionstable. Hyperlipidemiastable. Testicular hypofunction/goutstable. History Surgery Operation Date: 01/21/23 08:25 Proposed Procedures p Right Total Knee Arthroplasty - Alireza Abbott DO Operation Date: 01/21/23 09:35 Proposed Procedures p Right Total Knee Arthroplasty - Alireza Abbott DO Height/Weight Height: 6 ft 1 in Weight: 115.666 kg Allergies Allergy/AdvReac Type Severity Reaction Status Date / Time Penicillins Allergy "welts Verified 12/04/22 09:25 over entire body" codeine AdvReac Intermediate Agitated Verified 12/04/22 09:25 Medications Home Medications Medication Instructions Recorded Confirmed Last Taken allopurinol 300 mg tablet 300 mg PO HS 10/24/22 01/15/23 12/03/22 19:00 ascorbic acid (vitamin C) 500 mg 500 mg PO QAM 10/24/22 01/15/23 12/03/22 07:00 tablet (Vitamin C) cholecalciferol (vitamin D3) 50 50 mcg PO QAM 10/24/22 01/15/23 12/03/22 07:00 mcg (2,000 unit) capsule (Vitamin D3) diclofenac sodium 1 % topical gel 2 g topical QID PRN Pain 10/24/22 01/15/23 Unknown losartan 50 mg tablet 50 mg PO QAM 10/24/22 01/15/23 12/04/22 06:00 multivitamin 1 tab PO QAM 10/24/22 01/15/23 12/03/22 07:00 terazosin 10 mg capsule 10 mg PO HS 10/24/22 01/15/23 12/03/22 19:00 zinc 50 mg tablet 50 mg PO QAM 10/24/22 01/15/23 12/03/22 07:00 famotidine 10 mg tablet 10 mg PO QAM PRN Indigestion 12/04/22 01/15/23 12/03/22 07:00 polyethylene glycol 3350 17 gram 17 g PO DAILY PRN constipation #5 12/04/22 01/15/23 Unknown oral powder packet (Miralax) ea oxycodone 5 mg tablet 5 mg PO Q4H PRN pain #30 tabs 12/05/22 01/15/23 Unknown albuterol sulfate 90 mcg/actuation 2 puff inhalation QID PRN 01/15/23 01/15/23 Unknown aerosol inhaler Shortness Of Breath diclofenac sodium 75 mg 75 mg PO BID 01/15/23 01/15/23 Unknown tablet,delayed release Past Medical History Medical History Gout No recent issues History of anesthesia problem Post op hypotension with hernia surgery- had to stay an extra few hours but later discharged home Hx of coronary angiogram 2001 following [place]; done in [facility] - no stents or bypass needed Hx of malignant neoplasm of kidney 2011- S/p tumor removal from left kidney Hypertension Myocardial Infarction 2001, had an angiogram [facility], no stents; no longer follows with cardiology Past Surgical History Surgical History (Updated 01/15/23 @ 12:00 by Geri Wilburn PA-C) History of kidney surgery 2011, tumors removed from lt. kidney; has also had exploratory surgery to check to see if the tumors came back- no issues History of tonsillectomy and adenoidectomy History of total left knee replacement (TKR) 12/04/22= Done under SAB at L3-4 with two attempts. Hx of colonoscopy Hx of total shoulder replacement lt. Hx of umbilical hernia repair Social History Smoking Status: Former smoker tobacco type: cigarettes Do You Dip or Chew Tobacco: Yes (quit 08/03/21; advised) Smoking End Date: 2001 Hx Alcohol Use: Yes alcohol intake frequency: other Alcohol Intake Frequency Comment: "doesn't drink very much when he does have a drink" Hx Substance Use: No substance use type: does not use Lab Results Anesthesia Preop Results Results Anesthesia Widget: WBC 18.81 K/ul (4.8-10.8) H 12/05/22 Hgb 11.9 g/dl (14.0-18.0) L 12/05/22 Hct 34.9 % (42.0-52.0) L 12/05/22 Plt 191 K/uL (130-400) 12/05/22 Na 139 mmol/L (136-145) 12/05/22 K 4.0 mmol/L (3.5-5.1) 12/05/22 Cl 110 mmol/L (98-107) H 12/05/22 CO2 20 mmol/L (21-32) L 12/05/22 BUN 23 mg/dl (6-23) 12/05/22 Creat 0.91 mg/dl (0.6-1.4) 12/05/22 Glucose Level 150 mg/dl (70-99(Fasting)) H 12/05/22 Testing Laboratory Results Leukocytosis - labs done while pt admitted and post op day #1 from TKA; per records "Leukocytosis-likely secondary to preoperative steroids and/or surgical stress. Patient remaining asymptomatic."; will recheck CBC DOS Mild anemia- labs done when patient was post op day #1 from TKA Electrocardiogram Date: 10/30/22 Sinus rhythm with sinus arrhythmia with 1st degree AVB at 70bpm. Otherwise normal EKG per cardio. Chest X-Ray Date: 10/30/22 Findings: + NAD FINDINGS: PA and lateral chest radiographs are obtained. The heart is mildly enlarged. The pulmonary vasculature is noncongested. The lungs and pleural spaces are clear noting mild bibasilar atelectasis. There is no pneumothorax. The skeletal structures are osteopenic. The bony thorax appears intact. Degenerative change and mild scoliosis is noted in the spine. A left shoulder arthroplasty is in place.
[~2023-01-21 06:47] MED LIST changes: -ALLERGY Noted to ORDERED Medication SCH; +ALLERGY Noted to ORDERED Medication: Cefazolin SCH; -BUPIVACAINE 0.25% 30 ML VIAL ONE; +BUPIVACAINE 0.25% PF 30 ML VIAL ONE; +DEXAMETHASONE SOD INJ 4 MG/ML VIAL ONE; +EPINEPHrine INJ 1 MG/ML AMP ONE; +ceFAZolin 2000MG 2,000 MG/15 ML SYR IV SCH
[2023-01-21] MEDS ORDERED: Nursing to Pharmacy Communication SCH (07:30)
[2023-01-21 07:38] LABS: Appearance Urine Clear (Clear); Bilirubin Urine Negative (Negative); Blood Urine Negative (Negative); Color Urine Yellow; Glucose Urine UA Negative (Negative); Ketones Urine Negative (Negative); Leukocyte Esterase Urine Negative (Negative); Nitrite Urine Negative (Negative); Protein Urine Negative (Negative); Specific Gravity Urine 1.015 (1.000-1.030); Urobilinogen Urine Negative (Negative)
[2023-01-21 07:39] LABS: Basophils # (auto) 0.04 K/uL (0-0.2); Basophils % (auto) 0.5 %; Eosinophils # (auto) 0.26 K/uL (0-0.50); Eosinophils % (auto) 2.9 %; Hematocrit (blood only) 42.5 % (42.0-52.0); Hemoglobin 13.9 g/dl (14.0-18.0); Immature Granulocytes # (auto) 0.05 K/uL (0.01-0.20); Immature Granulocytes % (auto) 0.6 %; Lymphocytes # (auto) 2.09 K/uL (1.2-3.4); Lymphocytes % (auto) 23.7 %; Mean Corpuscular Hemoglobin 29.5 pg (25.0-34.0); Mean Corpuscular Hgb Conc 32.7 g/dL (32.0-36.0); Mean Corpuscular Volume 90.2 fL (80.0-100.0); Monocytes # (auto) 0.57 K/uL (0.11-0.59); Monocytes % (auto) 6.5 %; Neutrophils # (auto) 5.82 K/uL (1.40-6.50); Neutrophils % (auto) 65.8 %; Platelet Count 227 K/uL (130-400); RDW Coefficient of Variation 14.3 % (11.5-14.5); RDW Standard Deviation 47.3 fL (36.4-46.3); Red Blood Count 4.71 M/uL (4.70-6.10); White Blood Count 8.83 K/ul (4.8-10.8)
[2023-01-21 08:09] LABS: Partial Thromboplastin Ratio 1.1; Prothrombin Time 10.3 Seconds (9.0-12.0)
--- NOTE | 2023-01-21 08:56 | History & Physical Bridge Note ---
Date of Service January 21, 2023 History & Physical Bridge Note I have examined the patient, reviewed the History & Physical and in the interval since the performance of the History & Physical I have noted the following changes of clinical significance: no changes noted
[2023-01-21] MEDS ORDERED: fentaNYL citrate PF 100 MCG/2 ML VIAL ONE (09:17)
[2023-01-21] MEDS ORDERED: MIDAZOLAM HCL 1 MG/ML 2ML VIAL ONE ×2 (09:17)
[2023-01-21] MEDS ORDERED: fentaNYL citrate PF 100 MCG/2 ML VIAL IV PRN (09:29)
[2023-01-21] MEDS ORDERED: ATROPINE SULFATE 0.1 MG/ML 10ML SYR IV PRN (09:29)
[2023-01-21] MEDS ORDERED: ePHEDrine sulfate 50 MG/ML AMP IV PRN (09:29)
[2023-01-21] MEDS ORDERED: ONDANSETRON INJ 2 MG/ML 2 ML VIAL IV PRN ×2 (09:29→13:28)
[2023-01-21] MEDS ORDERED: ORTHO JOINT ANESTHETIC ONE (09:38)
[2023-01-21] MEDS ORDERED: PROPOFOL IV EMULSION 10 MG/ML 20 ML VIAL IV ONE ×2 (10:41→11:39)
[2023-01-21] MEDS ORDERED: KETAMINE 50 MG/5 ML SYRINGE ONE (10:41)
[2023-01-21] MEDS ORDERED: LIDOCAINE 2% MPF LOCAL 5 ML VIAL INFIL ONE (11:25)
--- NOTE | 2023-01-21 11:30 | Operative Report ---
Post Operative Report Pre & Post Diagnosis Operation Date: 01/21/23 09:35 Pre-Op Diagnosis: Degenerative Joint Disease Knee Right Post-Op Diagnosis: Degenerative Joint Disease Knee Right I identified the patient and participated in the time-out.: Yes Procedure Operation Date: 01/21/23 09:35 Actual Procedures p Right Total Knee Arthroplasty(Right) utilizing [employer] 2 patient matched total knee arthroplasty size femur right 7/tibia 7 right size polyethylene Insert size patella 35 oval- Alireza Abbott DO Surgeon Alireza Abbott DO Source Inspector ATUL Epps Estimated Blood Loss 5 Findings Consistent with Post-Op Diagnosis Patient presents with an 8 degree flexion contracture varus alignment subchondral sclerosis marginal osteophytes [id number] eburnated [id number] with varus alignment and a moderate to large effusion Specimens Bone and cartilage Drains Medium bore Hemovac Anesthesia Type MAC Spinal Regional Complications none Disposition Accompanied Patient To Recovery: No Disposition: Recovery Room Indications Patient presents with severe end-stage DJD right knee no response to conservative management clinic physical therapy anti-inflammatories relative rest activity modification corticosteroid injection viscosupplementation Description of Procedure After proper prepping and draping of the Right lower extremity anterior midline incision was made over the region of the extensor extensor mechanism after meticulous hemostasis was obtained and maintained in subcutaneous tissues a medial parapatellar incision was made The patella was subluxed lateralward the medial lateral gutter were cleaned from any hypertrophic synovitis and scar tissue of the distal femoral block was placed and the distal femoral osteotomy cut was made subsequently the chamfers anterior and posterior osteotomy cuts were made utilizing the 4-in-1 block the tibia was subsequently subluxed anteriorward medial and ateral meniscal remnants were excised in their entirety remnants of the anterior and posterior cruciate ligaments were excised in their entirety excellent exposure of the proximal tibia was obtained the tibial osteotomy guide was placed on the proximal tibial osteotomy cut was made once again the knee was irrigated with copious amounts of sterile saline solution the patella was subsequently everted lateralward thickened scar tissue around the patella was removed the patella was subsequently cut utilizing a freehand technique and was drilled prepared for final preparation and placement of patella socially flexion-extension gaps were checked and the equal and symmetric trials were placed to the appropriate femoral and tibial trials with poly-spacer being placed for equal flexion and extension gaps and full range of motion including extension to 0 and flexion to 140 the trial components after having been taken to recovery range of motion was subsequently removed meticulous hemostasis was obtained and maintained subsequently a knee block injection of joint cocktail including ropivacaine 0.5% 150 mg. Bupivacaine 0.5% epinephrine 1-200,030 mL's toradol 30 mg dexamethasone 4 mg ketamine 10 mg clonidine 100 micrograms normal saline solution 30 mg was infiltrated into the soft tissues of the posterior knee medial lateral gutters and periosteal synovium special attention was paid to protect neurovascular structures at all times subsequently trial components having been removed the knee was irrigated with sterile saline solution. debris was removed the proximal tibia was subsequently prepared and was made ready for the placement of the tibial component tibial component was also cemented and tamped into position the femoral component was subsequently placed and cemented in the position the patellar component was subsequently cemented in position because hemostasis once again obtained and maintained wound having been thoroughly irrigated with debridement and debridement lavage was performed as well as a medial parapatellar incision closed with #1 Vicryl in interrupted fashion subcutaneous was closed with #2 Vicryl skin was closed with skin clips. PA-C was necessary for prepping and drapping as well as wound closure of deep fascia Sub cutaneous tissue and skin and was necessary for the case. A sterile compressive dressing was placed patient was taken to recovery in stable condition of report dictated by Scar I attest to the content of the Intraoperative Record and any orders documented therein. Any exceptions are noted below.Due to the complex nature of the procedure, the entire surgery was performed with the operational assistance of ATUL Epps. The physician assistant primary care, under direct supervision, was involved in the actual performance of all aspects of the surgical procedure including hemostasis, tissue retraction and incision, instrument management, patient positioning, and wound closure. I attest to the content of the Intraoperative Record and any orders documented therein. Any exceptions are noted below.
--- NOTE | 2023-01-21 12:50 | XRay Report ---
XR knee RT 1 or 2V routine HISTORY: 62 years-old Male Surgical Post Op right knee total joint arthroplasty COMPARISON: None TECHNIQUE: 2 views of the right knee FINDINGS: Total joint arthroplasty with patellar resurfacing. A surgical drainage catheter is in place. Expecte d postoperative soft tissue swelling with deep tissue air. No acute fracture, dislocation or unexpect ed opaque foreign body. A metallic zipper projects over the posterior soft tissues of the lateral vie w, likely external to the patient. IMPRESSION: Total joint arthroplasty with expected postoperative changes. ACT 112: Negative or not required by law. The above report was generated using voice recognition software. It may contain grammatical, syntax o r spelling errors. Electronically signed by: Trace Sebastian M.D. 01/21/2023 12:49 PM
[2023-01-21] MEDS ORDERED: SODIUM CHLORIDE 0.9% 1000ML 1,000 ML IV SCH (13:28)
[2023-01-21] MEDS ORDERED: MAGNESIUM HYDROXIDE SUSP 30 ML UDC PO PRN (13:28)
[2023-01-21] MEDS ORDERED: METOCLOPRAMIDE HCL INJ 5 MG/ML 2 ML VIAL IV PRN (13:28)
[2023-01-21] MEDS ORDERED: bisacodyL 10 MG SUPP PR PRN (13:28)
[2023-01-21] MEDS ORDERED: FAMOTIDINE 10 MG TABLET PO PRN (13:28)
[2023-01-21] MEDS ORDERED: NALOXONE HCL 0.4 MG/1 ML VIAL/CARP IV PRN (13:28)
[2023-01-21] MEDS ORDERED: ALBUTEROL HFA 8 GM INHALER INH PRN (13:28)
[2023-01-21] MEDS ORDERED: HYDROmorphone INJ 0.5 MG/0.5 ML SYR IV PRN (13:28)
[2023-01-21] MEDS ORDERED: POLYETHYLENE (MIRALAX) 17 GM PACK PO PRN (13:28)
[2023-01-21] MEDS ORDERED: diphenhydrAMINE Capsule 25 MG CAP PO PRN (13:28)
[2023-01-21] MEDS: ACETAMINOPHEN 500 MG TAB PO SCH ×2 (14:26→22:31)
[2023-01-21] MEDS: oxyCODONE HCL IR 5 MG TAB (IMMEDIATE RELEASE) PO PRN ×3 (15:13→23:34)
--- NOTE | 2023-01-21 16:34 | Anesthesiology Progress Note ---
Date of Service January 21, 2023 Anesthesia Post Procedure Vital Signs Vital Signs: Temp Pulse Pulse Resp BP Pulse Ox O2 Del Method 01/21/23 16:25 Room Air 01/21/23 16:16 36.8 C 102 H 18 168/95 H 95 Room Air 01/21/23 15:15 36.6 C 97 H 18 159/93 H 95 Room Air 01/21/23 13:47 36.7 C 81 18 150/93 H 95 Room Air 01/21/23 14:16 36.6 C 90 18 151/94 H 95 Room Air 01/21/23 13:05 79 20 125/79 96 Room Air 01/21/23 12:55 36.6 C 88 18 120/79 94 Room Air 01/21/23 12:45 74 19 120/77 95 Nasal Cannula 01/21/23 12:35 80 17 116/78 97 Nasal Cannula 01/21/23 12:25 93 H 18 127/78 97 Nasal Cannula 01/21/23 12:19 36.5 C 90 19 117/90 96 Nasal Cannula 01/21/23 07:45 36.4 C L 82 20 162/99 H 94 Room Air O2 Flow Rate 01/21/23 16:25 01/21/23 16:16 01/21/23 15:15 01/21/23 13:47 01/21/23 14:16 01/21/23 13:05 01/21/23 12:55 01/21/23 12:45 4 01/21/23 12:35 3 01/21/23 12:25 4 01/21/23 12:19 5 01/21/23 07:45 Pain Intensity Left Knee: Pain Intensity: 3 Right Knee: Pain Intensity: 0 Transfer of Care Handoff Completed per policy Notes Mental Status: alert / awake / arousable Patient Amnestic to Procedure: Yes Nausea / Vomiting: adequately controlled Pain: adequately controlled Airway Patency, RR, SpO2: stable & adequate BP & HR: stable & adequate Hydration State: stable & adequate Neuraxial Anesthesia: was administered and sensory block is resolving Anesthetic Complications: no major complications apparent and Pt Satisfied with anesthetic care
[2023-01-21] MEDS ORDERED: hydrALAZINE HCL 20 MG/ML VIAL IV PRN (17:46)
[2023-01-21] MEDS: ceFAZolin 2000MG 2,000 MG/15 ML SYR IV SCH (18:00)
[2023-01-21] MEDS: CeleBREX 200 MG CAP PO SCH (20:10)
[2023-01-21] MEDS: DOCUSATE SODIUM 100 MG CAP PO SCH (20:11)
[2023-01-21] MEDS: ASPIRIN 81 MG ECTAB PO SCH (20:12)
[2023-01-21] MEDS ORDERED: DICLOFENAC SODIUM 75 MG TABCR PO SCH (21:00)
[2023-01-21] MEDS ORDERED: TERAZOSIN HCL 5 MG CAP PO SCH (21:00)
[2023-01-21] MEDS ORDERED: SENNA 8.6 MG TAB PO SCH (21:00)
[2023-01-21] MEDS ORDERED: allopurinoL 300 MG TAB PO SCH (21:00)
[2023-01-22] MEDS: ceFAZolin 2000MG 2,000 MG/15 ML SYR IV SCH (02:54)
[2023-01-22] MEDS: oxyCODONE HCL IR 5 MG TAB (IMMEDIATE RELEASE) PO PRN ×2 (03:30→07:41)
[2023-01-22] MEDS: ACETAMINOPHEN 500 MG TAB PO SCH (05:38)
[2023-01-22 06:49] LABS: Hematocrit (blood only) 35.7 % (42.0-52.0); Hemoglobin 11.9 g/dl (14.0-18.0); Mean Corpuscular Hemoglobin 29.5 pg (25.0-34.0); Mean Corpuscular Hgb Conc 33.3 g/dL (32.0-36.0); Mean Corpuscular Volume 88.6 fL (80.0-100.0); Mean Platelet Volume 10.3 fL (9.4-12.4); Platelet Count 214 K/uL (130-400); RDW Coefficient of Variation 14.2 % (11.5-14.5); RDW Standard Deviation 46.1 fL (36.4-46.3); Red Blood Count 4.03 M/uL (4.70-6.10); White Blood Count 18.08 K/ul (4.8-10.8)
[2023-01-22 07:03] LABS: BUN Creatinine Ratio 19.8 (10-20); Calcium 8.6 mg/dl (8.5-10.1); Creatinine Clr Calc Pharmacy 113.2 ml/min; Est GFR (African American) 104.3 ml/min
[2023-01-22] MEDS: ASPIRIN 81 MG ECTAB PO SCH (07:33)
[2023-01-22] MEDS: CeleBREX 200 MG CAP PO SCH (07:34)
[2023-01-22] MEDS: DOCUSATE SODIUM 100 MG CAP PO SCH (07:34)
--- NOTE | 2023-01-22 08:07 | Orthopedic Progress Note ---
Date of Service January 22, 2023 Assessment & Plan (1) Arthritis of right knee: Plan: Postop day 1 status post right total knee arthroplasty PT/OT protocols. Weightbearing as tolerated. DVT prophylaxis-aspirin p.o. twice daily, SCDs, ARTHUR ramey Pain management as written. Leukocytosis-likely secondary to preoperative steroids and/or surgical stress. Patient currently asymptomatic. DC planning-patient is planning for discharge to home with home health services. We will see how he progresses with physical therapy and plan for discharge to home today if he is doing well. Admission and Anticipated Discharge Date Admission Date: January 21, 2023 Subjective Postop day 1 Patient sitting up in bed awake and alert. No complaints this morning. Pain is controlled. Denies shortness of breath, chest pain, lightheadedness. Physical Exam Physical Exam: Dressings are clean, dry, and intact. Calves are soft nontender. Neurovascular intact. Toes are mobile. He has good dorsiflexion and plantarflexion of the right foot. He has had minimal drainage out of his Hemovac overnight. Results & Data Vital Signs (Past 12 Hours) Vital Signs Temp Pulse Resp BP Pulse Ox O2 Del Method 01/22/23 07:32 36.5 C 86 18 138/77 95 Room Air 01/21/23 23:15 Room Air 01/22/23 03:03 36.8 C 93 H 18 127/72 94 Room Air 01/21/23 22:30 37 C 120 H 18 117/73 96 Room Air Laboratory Results Laboratory Results WBC 18.08 K/ul (4.8-10.8) H 01/22/23 06:03 RBC 4.03 M/uL (4.70-6.10) L 01/22/23 06:03 Hgb 11.9 g/dl (14.0-18.0) L 01/22/23 06:03 Hct 35.7 % (42.0-52.0) L 01/22/23 06:03 MCV 88.6 fL (80.0-100.0) 01/22/23 06:03 MCH 29.5 pg (25.0-34.0) 01/22/23 06:03 MCHC 33.3 g/dL (32.0-36.0) 01/22/23 06:03 RDW Std Deviation 46.1 fL (36.4-46.3) 01/22/23 06:03 RDW Coeff of Dayana 14.2 % (11.5-14.5) 01/22/23 06:03 Plt Count 214 K/uL (130-400) 01/22/23 06:03 MPV 10.3 fL (9.4-12.4) 01/22/23 06:03 Immature Gran % (Auto) 0.6 % 01/21/23 07: Neut % (Auto) 65.8 % 01/21/23 07:22 Lymph % (Auto) 23.7 % 01/21/23 07:22 [place] % (Auto) 6.5 % 01/21/23 07:22 Eos % (Auto) 2.9 % 01/21/23 07:22 Baso % (Auto) 0.5 % 01/21/23 07: Neut # (Auto) 5.82 K/uL (1.40-6.50) 01/21/23 07:22 Lymph # (Auto) 2.09 K/uL (1.2-3.4) 01/21/23 07:22 [place] # (Auto) 0.57 K/uL (0.11-0.59) 01/21/23 07:22 Eos # (Auto) 0.26 K/uL (0-0.50) 01/21/23 07:22 Baso # (Auto) 0.04 K/uL (0-0.2) 01/21/23 07: Immature Gran # (Auto) 0.05 K/uL (0.01-0.20) 01/21/23 07:22 PT 10.3 Seconds (9.0-12.0) 01/21/23 07:22 INR 1.0 (0.9-1.1) 01/21/23 07: APTT 30.0 Seconds (21.0-31.0) 01/21/23 07: PTT Ratio 1.1 01/21/23 07:22 Sodium 138 mmol/L (136-145) 01/22/23 06:03 Potassium 4.0 mmol/L (3.5-5.1) 01/22/23 06:03 Chloride 107 mmol/L (98-107) 01/22/23 06:03 Carbon Dioxide 21 mmol/L (21-32) 01/22/23 06:03 Anion Gap 10 (3-11) 01/22/23 06:03 BUN 18 mg/dl (6-23) 01/22/23 06:03 Creatinine 0.91 mg/dl (0.6-1.4) 01/22/23 06:03 Est Cr Clr Drug Dosing 113.2 ml/min 01/22/23 06:03 Est GFR ( Amer) 104.3 ml/min 01/22/23 06:03 Est GFR (Non-Af Amer) 90.0 ml/min 01/22/23 06:03 BUN/Creatinine Ratio 19.8 (10-20) 01/22/23 06:03 Glucose 143 mg/dl (70-99(Fasting)) H 01/22/23 06:03 Calcium 8.6 mg/dl (8.5-10.1) 01/22/23 06:03 Urine Color Yellow 01/21/23 Unknown Urine Appearance Clear (Clear) 01/21/23 Unknown Urine pH 5.0 (4.5-7.5) 01/21/23 Unknown Ur Specific [place] 1.015 (1.000-1.030) 01/21/23 Unknown Urine Protein Negative (Negative) 01/21/23 Unknown Urine Glucose (UA) Negative (Negative) 01/21/23 Unknown Urine Ketones Negative (Negative) 01/21/23 Unknown Urine Blood Negative (Negative) 01/21/23 Unknown Urine Nitrite Negative (Negative) 01/21/23 Unknown Urine Bilirubin Negative (Negative) 01/21/23 Unknown Urine Urobilinogen Negative (Negative) 01/21/23 Unknown Ur Leukocyte Esterase Negative (Negative) 01/21/23 Unknown SARS-CoV-2, RNA, NAAT NEGATIVE (NEGATIVE) 01/21/23 Unknown Blood Type O Positive 01/21/23 07:22 Antibody Screen NEGATIVE 01/21/23 07:22 Impressions Knee X-Ray 01/21/23 12:19 XR knee RT 1 or 2V routine HISTORY: 62 years-old Male Surgical Post Op right knee total joint arthroplasty COMPARISON: None TECHNIQUE: 2 views of the right knee FINDINGS: Total joint arthroplasty with patellar resurfacing. A surgical drainage catheter is in place. Expected postoperative soft tissue swelling with deep tissue air. No acute fracture, dislocation or unexpected opaque foreign body. A metallic zipper projects over the posterior soft tissues of the lateral view, likely external to the patient. IMPRESSION: Total joint arthroplasty with expected postoperative changes. ACT 112: Negative or not required by law. The above report was generated using voice recognition software. It may contain grammatical, syntax or spelling errors. Electronically signed by: Trace Sebastian M.D. 01/21/2023 12:49 PM
[2023-01-22] MEDS ORDERED: CHOLECALCIFEROL 1,000 UNITS 25 MCG TAB PO SCH (09:00)
[2023-01-22] MEDS ORDERED: NON-FORMULARY MEDICATION (Multivitamin Tablet) PO SCH (09:00)
[2023-01-22] MEDS ORDERED: NON-FORMULARY MEDICATION (Zinc 50 mg Tablet) PO SCH (09:00)
[2023-01-22] MEDS ORDERED: LOSARTAN POTASSIUM 50 MG TAB PO SCH (09:00)
[2023-01-22] MEDS ORDERED: MULTIVITAMIN TAB PO SCH (09:00)
[2023-01-22] MEDS ORDERED: ASCORBIC ACID 500 MG TAB PO SCH (09:00)
--- NOTE | 2023-01-22 19:40 | Discharge Summary ---
Date of Service date of discharge: January 22, 2023 date of admission: 01/21/23 Admission HPI Per Admitting Provider Piter is a pleasant 62-year-old male who presents for preop evaluation prior to his right total knee replacement, he has been having pain in his knee for many years now which is gradually worsened and is now affecting his daily activities including walking standing going up and down stairs. he has recently undergone left TKA and is doing quite well. He has tried prior cortisone injection, viscosupplementation, baking powder mixer brace, Iovera treatment without any significant improvement. he has also tried IBU and Voltaren. He rates his current pain as a 7 out of 10. At this point time is failed conservative measures and would like to proceed with a right total knee replacement. Principal Diagnosis right knee arthritis Discharge Exam Musculoskeletal right knee: NVDI, calf SNT, negative jurgen sign. DP palpable, able to wiggle toes/ankle movement without difficulty. RENALDO dressing clean dry and intact. expected post-operative bruising noted. Discharge Data Allergies Allergy/AdvReac Type Severity Reaction Status Date / Time Penicillins Allergy Intermediate "welts Verified 01/21/23 07:37 over entire body" codeine AdvReac Intermediate Agitated Verified 01/21/23 07:37 Procedures Performed Operation Date: 01/21/23 09:35 Actual Procedures p Right Total Knee Arthroplasty(Right) - Alireza Abbott DO Ordered Studies 01/21/23 05:00 US - OR guided needle placemen Routine Hospital Course (1) Arthritis of right knee: Postop day 1 status post right total knee arthroplasty PT/OT protocols. Weightbearing as tolerated. DVT prophylaxis-aspirin p.o. twice daily, SCDs, ARTHUR ramey Pain management as written. Leukocytosis-likely secondary to preoperative steroids and/or surgical stress. Patient currently asymptomatic. DC planning-patient is planning for discharge to home with home health services. We will see how he progresses with physical therapy and plan for discharge to home today if he is doing well. Total Time Total Time Spent Total Time Spent (In Minutes): 20 Discharge Plan Discharge Items Patient Disposition: Home - Home Health Services Reason For Visit: DJD Knee Right Discharge Diagnosis: DJD right knee Activity: Per Instructions section Weightbearing: Right weightbearing Weightbearing Comment: WBAT with walker Non-emergency contact: Surgeon Call non-emergency contact if: your pain is not controlled, your temperature is above 101.5, your wound has increased redness, your wound has increased drainage and your wound pain has increased Follow-up/Referrals: Alireza Abbott DO [Surgeon] - (follow up with Dr. Abbott or his PA Radhames Singh in 2 weeks for your post-operative check up ) Alireza Antoine, D.O. [Primary Care Provider] - Diet: Regular Addtl Attending Provider Instructions: ACTIVITY RECOMMENDATIONS: SELF CARE INSTRUCTIONS AFTER TOTAL KNEE REPLACEMENT A. You may need to continue a physical therapy program after discharge from the hospital. There are several options available to you. Your doctor will assist you in selecting the best one for you. 1. An out-patient facility 2 to 3 times a week for therapy or home therapy. 2. Continue working on all exercises taught to you in the hospital. Your goals should be to increase bending of your knee to 90 degrees and beyond and to fully straighten your knee. B. You may progress at your own pace from walking with a walker or crutches to a cane; then to no assistive devices. C. Make walking a part of your daily routine. Be up as much as comfortable with rest periods throughout the day. Rest with leg elevation is very important. Use the ice wrap frequently for the first 3-4 weeks. D. There are no restrictions on activities. You may ride in a car, shop, participate in weblogic developer and all social activities. E. Wear the long elastic stockings (ARTHUR hose) 20 hours a day for 2 weeks after surgery. They can be removed several times a day for laundering and for a bath. F. You may shower, no tub baths until cleared by your doctor. SPECIAL CARE INSTRUCTIONS: VERY IMPORTANT TO READ AND REVIEW A. There are a few signs you need to watch for after you are home. Call [facility] if you notice any of the followin. Increased severe knee pain. Some pain is expected especially when you exercise. 2. Increased swelling in your leg or knee; pain or swelling of the calf muscle in either lower leg. 3. Any fluid drainage from the incision. 4. Shortness of breath or chest pain. B. Please call [facility] at if you have any concerns or questions about your operation or recovery. The doctor or his nurse will return your call promptly. C. You must take antibiotics before dental work, bladder, bowel or other surgery. Your doctor will provide you with a permanent care to carry describing this precaution. IMPORTANT: * REMEMBER TO TAKE ASPIRIN, 81 MG, TWICE DAILY FOR 4 WEEKS UNLESS OTHERWISE DIRECTED. THIS IS YOUR BLOOD THINNER. * HIGH RISK PATIENTS MAY BE PRESCRIBED A STRONGER BLOOD THINNER. THIS WILL BE PROVIDED AT DISCHARGE. * CALL IF INCREASED PAIN, REDNESS, DRAINAGE OR FEVER GREATER THAT 101. * WEAR ARTHUR HOSE 20 HOURS PER DAY FOR 2 WEEKS. DRESSING INSTRUCTIONS * RENALDO Dressing- This is a large suction dressing covering your incision. This will help pull any excess drainage from the wound and allow your incision to heal properly. You may shower with this if you can keep the unit outside of the shower. If any bleeding or leakage is noted please call your doctor's office. This will remain on your incision for 7 days and then should be removed. This can be done yourself or by the home nursing staff if applicable. The entire unit is disposable once removed. Once removed, keep incision clean and dry. If redness or drainage is noted, please call your surgeon. ONCE RENALDO IS REMOVED, FOLLOW THESE INSTRUCTIONS: DERMABOND Prineo- This is a mesh tape dressing that is covered with glue. It should remain in place until the incision is properly healed, usually 10-14 days. This dressing is designed to naturally slough off. You may trim the excess mesh tape as it peels off. Incision may be briefly wet in a shower. Dry immediately by blotting with a clean, dry towel. Do not bath or swim until instructed by your doctor. Do not scratch, rub, or pick at the dressing. Do not apply any topical ointments or lotions until dressing is completely removed and/or instructed by your doctor. There may be a small piece of suture material at one end of your incision. Do not pull or trim this. If it is bothersome or catching on clothing, you may cover it with a band-aid. IF INCISION IS LEAKING THROUGH DRESSING, CALL THE OFFICE . FOLLOW UP VISIT: If appointment is not already scheduled: Please call [facility] to make a follow-up appointment for 2 weeks after your surgery at . Pending Studies at Discharge: No Stand-Alone Forms: My [facility], Pain - Opioid Pain Management, Smoking Cessation Medications and DC Order Prescriptions: New celecoxib [Celebrex] 200 mg Capsule 200 mg PO BID 14 Days Qty: 28 0RF aspirin 81 mg Tablet,Delayed Release (Dr/Ec) 81 mg PO BID 30 Days Qty: 60 0RF acetaminophen [Tylenol Extra Strength] 500 mg Tablet 1,000 mg PO Q8 14 Days Qty: 84 0RF doxycycline hyclate 100 mg capsule 100 mg PO BID 14 Days Qty: 28 1RF oxycodone 5 mg tablet 5 mg PO Q4H MDD 6 PRN (Reason: pain) Qty: 30 0RF Continued albuterol sulfate 90 mcg/actuation HFA aerosol inhaler 2 puff INHALATION QID PRN (Reason: Shortness Of Breath) multivitamin Tablet 1 tab PO QAM losartan 50 mg Tablet 50 mg PO QAM ascorbic acid (vitamin C) [Vitamin C] 500 mg Tablet 500 mg PO QAM allopurinol 300 mg Tablet 300 mg PO HS zinc 50 mg Tablet 50 mg PO QAM terazosin 10 mg Capsule 10 mg PO HS diclofenac sodium 1 % Gel 2 g TOPICAL QID PRN (Reason: Pain) Rx Instructions: apply to single elbow, wrist or hand; for hand includes palm/fingers/back of hand cholecalciferol (vitamin D3) [Vitamin D3] 50 mcg (2,000 unit) Capsule 50 mcg PO QAM famotidine 10 mg Tablet 10 mg PO QAM PRN (Reason: Indigestion) Patient Comments: only takes when he takes all of his medications at night. polyethylene glycol 3350 [Miralax] 17 gram powder in packet 17 g PO DAILY PRN (Reason: constipation) Qty: 5 0RF Discontinued diclofenac sodium 75 mg tablet,delayed release (DR/EC) 75 mg PO BID oxycodone 5 mg tablet 5 mg PO Q4H MDD 6 PRN (Reason: pain) Qty: 30 0RF Krames/Other Patient Handouts: Tips After Knee Surgery, Home Safety After Joint Surgery, Knee Replace Control Swelling, After Knee Arthroscopy Admission Data Admit Date/Time: 01/21/23 12:19 Attending Provider: Alireza Abbott Admit Provider: Alireza Abbott Primary Care Provider: Alireza Antoine Other Interventions: Discharge Summary Assessment (RN) Last Done: 01/22/23 10:30
== END 2023-01-22 11:20 | disposition home health service (06) ==
LOC: ASU 06:47 → 3E 06:47